=== PATIENT | female | born 1990 | race Caucasian/White ===

== ENCOUNTER 2017-10-15 19:18 | Emergency (ER) | payer OTHER, SELFPAY ==
[2017-10-15 19:22] VITALS: BP 136/86; PULSE 72; RESP 16; TEMP 37.2; O2SAT 99; BMI 25.0
--- NOTE | 2017-10-15 19:31 | US_ITS ---
US OB transvaginal Ordering Physician: Naseem Jernigan MD Patient Age: 27 years: Female HISTORY: ITS.REASON: VAGINAL BLEEDING WITH TECHNIQUE: Transvaginal pelvic ultrasound. Reported Early COMPARISON :None FINDINGS There is no evidence of intrauterine gestation at this time. Endometrial stripe measuring 5.7 mm AP contains mildly hypoechoic debris-filled fluid which could reflect blood. Minimal residual decidual reaction.. Beta-hCG 159 is very low and likely also reflects prior spontaneous AB. Follow-up serum beta hCG would additionally confirm such & confirm demise of this . Uterus normal size 7.1 cm length as 3.8 x 4.1 cm. No fluid in cul-de-sac. Left ovary: 3.4 cm X 2.9 x 1.9 cm and contains a thick walled, up to 2 cm cm cyst which may reflect a regressing residual of prior corpus luteum cyst. Scattered small follicles also noted the left ovary. Right ovary 3.4 x 2.1 cm IMPRESSION: 1. No intrauterine gestation evident. .This appearance along with very low low beta hCG most likely reflects prior spontaneous AB. . However follow beta-hCG to further exclude unlikely very very early . 2. Moderate thickness endometrial stripe possibly some residual blood or echogenic fluid within the endometrial cavity 3. No fluid in cul-de-sac. 4. Ovaries normal size bilaterally.. ... Left ovary contains a moderate thick-walled 2 cm cyst possible regressing prior corpus luteum
--- NOTE | 2017-10-15 19:43 | HMH.EDUROGF ---
ED Disposition Clinical Impression: First trimester bleeding Disposition: Home, Self-Care Condition on Discharge: Fair Additional Instructions: 1- to see Dr Diamond in 2 for a hormon level check and pathology report. Referrals: Nas Diamond MD [Staff Physician] - - Critical Care Critical Care Time: No Attestation: On , the high probability of a clinically significant, sudden or life threatening deterioration of the following system(s) required my full and direct attention, intervention and personal management. The time I documented below is in addition to time spent performing reported procedures but includes the following listed in this critical care notation. Medical Decision Making - Medical Records Medical records reviewed: Yes: I reviewed the patient's medical records. Vital Signs: 10/15/17 19:22 Temperature 98.9 F Temperature Source Oral Pulse Rate [Right Brachial] 72 Respiratory Rate 16 Blood Pressure [Right Arm] 136/86 Blood Pressure Mean [Right Arm] 102 Blood Pressure Source [Right Arm] Automatic Cuff Blood Pressure Position [Right Arm] Sitting 02 Sat by Pulse Oximetry 99 Oxygen Delivery Method Room Air - Lab Data Lab results reviewed: Yes: I reviewed the patient's lab results. Lab Results 10/15/17 19:45: WBC 9.6, RBC 4.65, Hgb 14.3, Hct 42.5, MCV 91.3, MCH 30.7, MCHC 33.6, RDW 12.0, Plt Count 287, MPV 7.0 L, Neut % (Auto) 56.0, Lymph % (Auto) 36.4, [place] % (Auto) 5.3, Eos % (Auto) 1.8, Baso % (Auto) 0.6, Neut # (Auto) 5.4, Lymph # (Auto) 3.5, [place] # (Auto) 0.5, Eos # (Auto) 0.2, Baso # (Auto) 0.1 10/15/17 19:45: Sodium 137, Potassium 3.3 L, Chloride 104, Carbon Dioxide 26, Anion Gap 10.3, BUN 7, Creatinine 0.58, Estimated Creat Clear 162, Estimated GFR 125, Est GFR ( Amer) 151, Glucose 86, Calcium 9.0, Total Bilirubin 0.2, AST 13 L, ALT 20, Alkaline Phosphatase 83, Total Protein 7.6, Albumin 4.1, Globulin 3.5 H, Albumin/Globulin Ratio 1.2 10/15/17 19:45: Serum HCG, Qual Positive 10/15/17 19:45: HCG, Quant 159 H Result diagrams: 10/15/17 19:45 10/15/17 19:45 Orders (Tests/Meds): ORDERS Category Date Time Status ABO/RH Type Stat BBK 10/15/17 19:52 Ordered US OB transvaginal Stat Ultrasound 10/15/17 19:31 Taken - US Data Findings Narrative: Transvaginal ultrasound was negative for sac. - Shawn Inquiry Pt receiving controlled substance: No Shawn was queried for this patient: No Medical Decision Making Narrative: I discussed with the patient her ultrasound results and her low hormone level. She understands she will need to follow-up with Dr. Diamond for a repeat hormone level and obtain a pathology report from the products that came out during the vaginal exam. Female Urogenital HPI - General Chief complaint: Vaginal Bleeding Stated complaint: Pregancy, Bleeding Mode of Arrival: Family Vehicle Limitations: No Limitations Description of Symptoms (Recalled from ER Triage Doc. by RN): C/O RECENTLY FOUND OUT SHE IS AND NOW HAVING MINIMAL BLEEDING - History of Present Illness HPI Narrative: 27 years old white female smoker 2 para 1 A0. Her menstrual period was September 12, 2017. She she missed her period this months and she tested herself and was positive for . Today after urination while wiping she saw blood, he came immediately to the ER. She denies abdominal pain, profuse vaginal bleeding, back pain. No nausea no vomiting no diarrhea no dysuria or hematuria. : yes - Related Data : 2 Para: 1 A: 0 Home Medications Medication Instructions Recorded Confirmed No Known Home Medications [No 10/15/17 10/15/17 Known Home Medications] Allergies Allergy/AdvReac Type Severity Reaction Status Date / Time No Known Allergies Allergy Verified 10/15/17 19:29 [facility] History I have reviewed the patient's past medical history: Yes Medical History: Denies:: Cancer, Diabetes Mellitus Type 1,
--- NOTE | 2017-10-15 19:47 | ED_ITS ---
ED Disposition Clinical Impression: First trimester bleeding Disposition: Home, Self-Care Condition on Discharge: Fair Additional Instructions: 1- to see Dr Diamond in 2 for a hormon level check and pathology report. Referrals: Nas Diamond MD [Staff Physician] - - Critical Care Critical Care Time: No Attestation: On , the high probability of a clinically significant, sudden or life threatening deterioration of the following system(s) required my full and direct attention, intervention and personal management. The time I documented below is in addition to time spent performing reported procedures but includes the following listed in this critical care notation. Medical Decision Making - Medical Records Medical records reviewed: Yes: I reviewed the patient's medical records. Vital Signs: 10/15/17 19:22 Temperature 98.9 F Temperature Source Oral Pulse Rate [Right Brachial] 72 Respiratory Rate 16 Blood Pressure [Right Arm] 136/86 Blood Pressure Mean [Right Arm] 102 Blood Pressure Source [Right Arm] Automatic Cuff Blood Pressure Position [Right Arm] Sitting 02 Sat by Pulse Oximetry 99 Oxygen Delivery Method Room Air - Lab Data Lab results reviewed: Yes: I reviewed the patient's lab results. Lab Results 10/15/17 19:45: WBC 9.6, RBC 4.65, Hgb 14.3, Hct 42.5, MCV 91.3, MCH 30.7, MCHC 33.6, RDW 12.0, Plt Count 287, MPV 7.0 L, Neut % (Auto) 56.0, Lymph % (Auto) 36.4, [place] % (Auto) 5.3, Eos % (Auto) 1.8, Baso % (Auto) 0.6, Neut # (Auto) 5.4 , Lymph # (Auto) 3.5, [place] # (Auto) 0.5, Eos # (Auto) 0.2, Baso # (Auto) 0.1 10/15/17 19:45: Sodium 137, Potassium 3.3 L, Chloride 104, Carbon Dioxide 26, Anion Gap 10.3, BUN 7, Creatinine 0.58, Estimated Creat Clear 162, Estimated GFR 125, Est GFR ( Amer) 151, Glucose 86, Calcium 9.0, Total Bilirubin 0.2, AST 13 L, ALT 20, Alkaline Phosphatase 83, Total Protein 7.6, Albumin 4.1, Globulin 3.5 H, Albumin/Globulin Ratio 1.2 10/15/17 19:45: Serum HCG, Qual Positive 10/15/17 19:45: HCG, Quant 159 H Result diagrams: 10/15/17 19:45 10/15/17 19:45 Orders (Tests/Meds): ORDERS Category Date Time Status ABO/RH Type Stat BBK 10/15/17 19:52 Ordered US OB transvaginal Stat Ultrasound 10/15/17 19:31 Taken - US Data Findings Narrative: Transvaginal ultrasound was negative for sac. - Shawn Inquiry Pt receiving controlled substance: No Shawn was queried for this patient: No Medical Decision Making Narrative: I discussed with the patient her ultrasound results and her low hormone level. She understands she will need to follow-up with Dr. Diamond for a repeat hormone level and obtain a pathology report from the products that came out during the vaginal exam. Female Urogenital HPI - General Chief complaint: Vaginal Bleeding Stated complaint: Pregancy, Bleeding Mode of Arrival: Family Vehicle Limitations: No Limitations Description of Symptoms (Recalled from ER Triage Doc. by RN): C/O RECENTLY FOUND OUT SHE IS AND NOW HAVING MINIMAL BLEEDING - History of Present Illness HPI Narrative: 27 years old white female smoker 2 para 1 A0. Her menstrual period was September 12, 2017. She she missed her period this months and she tested herself and was positive for . Today after urination while wiping she saw blood , he came immediately to the ER. She denies abdominal pain, profuse vaginal bleed
[2017-10-15 19:55] LABS: Basophils # 0.1 K/mm3 (0-0.2); Basophils % 0.6 % (0.1-2.0); Eosinophils # 0.2 K/mm3 (0.0-0.4); Eosinophils % 1.8 % (0.1-12.0); Hematocrit 42.5 % (37.0-47.0); Hemoglobin 14.3 g/dL (12.2-16.2); Lymphocytes # 3.5 K/mm3 (0.7-4.5); Lymphocytes % 36.4 K/mm3 (10-50); Mean Corpuscular HGB Conc 33.6 g/dL (31.8-35.4); Mean Corpuscular Hemoglobin 30.7 pg (27.0-31.2); Mean Corpuscular Volume 91.3 fl (81-99); Monocytes # 0.5 K/mm3 (0.1-1.0); Monocytes % 5.3 % (1.7-9.3); Neutrophils # 5.4 K/mm3 (1.8-7.8); Platelet Count 287 K/mm3 (142-424); Red Blood Count 4.65 M/mm3 (4.20-5.40); White Blood Count 9.6 K/mm3 (4.8-10.8)
[2017-10-15 20:01] LABS: HCG Qualitative, Serum Positive (Negative)
[2017-10-15 20:05] LABS: Alanine Aminotransferase 20 U/L (12-78); Albumin Level 4.1 gm/dL (3.4-5.0); Albumin/Globulin Ratio 1.2 (1.1-1.8); Alkaline Phosphatase 83 U/L (46-116); Anion Gap 10.3 mEq/L (5-15); Aspartate Amino Transferase 13 U/L (15-37); Bilirubin,Total 0.2 mg/dL (0.2-1.0); Blood Urea Nitrogen 7 mg/dL (7-18); Carbon Dioxide 26 mmol/L (21.0-32.0); Chloride 104 mmol/L (98-107); Creatinine Clearance Estimated 162 mL/min (0-300); Creatinine,Serum 0.58 mg/dL (0.55-1.02); Estimated Glomerular Filt Rate 125 ml/min (>60); GFR (African American) 151 ML/MIN (>60); Globulin 3.5 gm/dl (1.3-3.2); Glucose 86 mg/dL (74-106); Potassium 3.3 mmoL/L (3.5-5.1); Sodium 137 mmol/L (136-145); Total Protein,Serum 7.6 gm/dL (6.4-8.2)
[2017-10-15 21:14] LABS: HCG,Quantitative 159 mIU/mL
[2017-10-15 22:03] VITALS: BP 126/81; PULSE 88; RESP 12; TEMP 37; O2SAT 94
== END 2017-10-15 22:04 | disposition home or self-care (01) ==
PROVIDERS: Emergency Provider Emergency Medicine
DX: O20.9 Hemorrhage in early pregnancy, unspecified (principal); F17.210 Nicotine dependence, cigarettes, uncomplicated
CPT/HCPCS: 76830; 80053; 84702; 84703; 85025; 99283

== ENCOUNTER 2017-10-16 14:41 | Emergency (ER) | payer OTHER, SELFPAY ==
[2017-10-16 14:54] VITALS: BP 130/66; PULSE 86; RESP 18; TEMP 36.9; O2SAT 98; BMI 25.0
--- NOTE | 2017-10-16 15:00 | HMH.EDGENADL ---
ED Disposition Clinical Impression: Vaginal bleeding, Early stage of Disposition: Home, Self-Care Condition on Discharge: Fair Instructions: DI for Vaginal Bleeding Additional Instructions: followup for repeat test in 3 to 4 days. Abstain from sexual activity if bleeding Time of Disposition: 16:50 - Critical Care Critical Care Time: No Attestation: On , the high probability of a clinically significant, sudden or life threatening deterioration of the following system(s) required my full and direct attention, intervention and personal management. The time I documented below is in addition to time spent performing reported procedures but includes the following listed in this critical care notation. Medical Decision Making - Medical Records Medical records reviewed: Yes: I reviewed the patient's medical records. Vital Signs: 10/16/17 14:54 Temperature 98.4 F Temperature Source Oral Pulse Rate [Right Radial] 86 Respiratory Rate 18 Blood Pressure [Right Arm] 130/66 Blood Pressure Mean [Right Arm] 87 Blood Pressure Source [Right Arm] Automatic Cuff Blood Pressure Position [Right Arm] Sitting 02 Sat by Pulse Oximetry 98 Oxygen Delivery Method Room Air - Lab Data Lab results reviewed: Yes: I reviewed the patient's lab results. Lab Results 10/16/17 15:20: HCG, Quant 222 H 10/16/17 15:20: Blood Type O Positive - Shawn Inquiry Pt receiving controlled substance: No Shawn was queried for this patient: No General Adult HPI - General Chief complaint: Vaginal Bleeding Stated complaint: approx 4 weeks ,bleeding Time Seen by Provider: 10/16/17 15:00 Mode of Arrival: Family Vehicle Limitations: No Limitations Description of Symptoms (Recalled from ER Triage Doc. by RN): pt states she was seen in er lastnight for brown discharge, performed pelvic exam and a dark blood clot came out of her cervix. pt is now c/o bleeding/cramping/blood clots. pt was told she was possibly 4 weeks . - History of Present Illness HPI narrative: Pt states her LMP started . Started bleeding vaginally yesterdayand came to the ED where Beta [id number] and US of pelvis negative for IUP, now bleeding more and comes back to the ED . She does not know her Maternal Blood type or RH factor Location: pelvis - Related Data Home Medications Medication Instructions Recorded Confirmed No Known Home Medications [No 10/15/17 10/16/17 Known Home Medications] Allergies Allergy/AdvReac Type Severity Reaction Status Date / Time No Known Allergies Allergy Verified 10/15/17 19:29 [facility] History I have reviewed the patient's past medical history: Yes Medical History: Denies:: Cancer, Diabetes Mellitus Type 1, Diabetes Mellitus Type 2, MRSA Amputation: No Fractures: Yes (LEFT LEG) - Social History Smoking Status: Never smoker Tobacco Type: cigarettes Alcohol Intake: never - Psychiatric History Expresses thoughts of harming self/others: None Suicide Plan Description: No Plan ROS Obtained: Yes All systems reviewed & no additional complaints Physical Exam - General General appearance: alert, in no apparent distress - Head Head exam: atraumatic, normocephalic, normal inspection - Eye Eye exam: Present: normal appearance, PERRL, EOMI - Respiratory Respiratory exam: Present: normal lung sounds bilaterally. Absent: respiratory distress - Cardiovascular Cardiovascular exam: Present: regular rate, normal rhythm. Absent: JVD - Abdominal Exam Abdominal exam: Present: tenderness (in suprapubic area) - Neurological Exam Neurological exam: Present: alert, oriented X3
--- NOTE | 2017-10-16 15:07 | ED_ITS ---
ED Disposition Clinical Impression: Vaginal bleeding, Early stage of Disposition: Home, Self-Care Condition on Discharge: Fair Instructions: DI for Vaginal Bleeding Additional Instructions: followup for repeat test in 3 to 4 days. Abstain from sexual activity if bleeding Time of Disposition: 16:50 - Critical Care Critical Care Time: No Attestation: On , the high probability of a clinically significant, sudden or life threatening deterioration of the following system(s) required my full and direct attention, intervention and personal management. The time I documented below is in addition to time spent performing reported procedures but includes the following listed in this critical care notation. Medical Decision Making - Medical Records Medical records reviewed: Yes: I reviewed the patient's medical records. Vital Signs: 10/16/17 14:54 Temperature 98.4 F Temperature Source Oral Pulse Rate [Right Radial] 86 Respiratory Rate 18 Blood Pressure [Right Arm] 130/66 Blood Pressure Mean [Right Arm] 87 Blood Pressure Source [Right Arm] Automatic Cuff Blood Pressure Position [Right Arm] Sitting 02 Sat by Pulse Oximetry 98 Oxygen Delivery Method Room Air - Lab Data Lab results reviewed: Yes: I reviewed the patient's lab results. Lab Results 10/16/17 15:20: HCG, Quant 222 H 10/16/17 15:20: Blood Type O Positive - Shawn Inquiry Pt receiving controlled substance: No Shawn was queried for this patient: No General Adult HPI - General Chief complaint: Vaginal Bleeding Stated complaint: approx 4 weeks ,bleeding Time Seen by Provider: 10/16/17 15:00 Mode of Arrival: Family Vehicle Limitations: No Limitations Description of Symptoms (Recalled from ER Triage Doc. by RN): pt states she was seen in er lastnight for brown discharge, performed pelvic exam and a dark blood clot came out of her cervix. pt is now c/o bleeding/cramping/blood clots. pt was told she was possibly 4 weeks . - History of Present Illness HPI narrative: Pt states her LMP started . Started bleeding vaginally yesterdayand came to the ED where Beta [id number] and US of pelvis negative for IUP, now bleeding more and comes back to the ED . She does not know her Maternal Blood type or RH factor Location: pelvis - Related Data Home Medications Medication Instructions Recorded Confirmed No Known Home Medications [No 10/15/17 10/16/17 Known Home Medications] Allergies Allergy/AdvReac Type Severity Reaction Status Date / Time No Known Allergies Allergy Verified 10/15/17 19:29 [facility] History I have reviewed the patient's past medical history: Yes Medical History: Denies:: Cancer, Diabetes Mellitus Type 1, Diabetes Mellitus Type 2, MRSA Amputation: No Fractures: Yes (LEFT LEG) - Social History Smoking Status: Never smoker Tobacco Type: cigarettes Alcohol Intake: never - Psychiatric History Expresses thoughts of harming self/others: None Suicide Plan Description: No Plan ROS Obtained: Yes All systems reviewed & no additional complaints Physical Exam - General General appearance: alert, in no apparent distress - Head Head exam: atraumatic, normocephalic, normal inspection - Eye Eye exam: Present: normal appearance, PERRL, EOMI - Respir
[2017-10-16 15:50] LABS: HCG,Quantitative 222 mIU/mL
[2017-10-16 17:13] VITALS: BP 152/81; PULSE 74; RESP 20; TEMP 37.3
== END 2017-10-16 17:21 | disposition home or self-care (01) ==
PROVIDERS: Emergency Provider General Practice
DX: O20.9 Hemorrhage in early pregnancy, unspecified (principal)
CPT/HCPCS: 84702; 86900; 86901; 99282

== ENCOUNTER → 2017-10-18 09:07 | Outpatient (CLI) | payer OTHER, SELFPAY ==
[2017-10-18 10:24] LABS: HCG,Quantitative 210 mIU/mL
== END ==
PROVIDERS: Visit Provider Obstetrics & Gynecology
DX: Z32.00 Encounter for pregnancy test, result unknown (principal)
CPT/HCPCS: 36415; 84702

== ENCOUNTER → 2017-10-20 09:29 | Day surgery (SDC) | payer OTHER, SELFPAY ==
[2017-10-20] VITALS (14 sets, daily range): BP systolic 93–117; BP diastolic 53–68; PULSE 48–74; RESP 12–18; TEMP 36.6–37.2; O2SAT 91–100; BMI 25.0
--- NOTE | 2017-10-20 10:11 | HMH.ANESCL ---
[facility] Anesthesia Checklist - Patient Identification Patient Identification: Arm Band - Structural Data Admitted From: Home Planned Operative Procedure/s: d&e Consent for Planned Operative Procedure(s) Verified: Yes Verified Documents: Surgical Consent, History and Physical - NPO Status Verified Time NPO: 00:00 - Additional verifications Anesthesia Reactions: No - Airway Assessment C-Spine Mobility Assessed: Yes (mp2) TMJ Mobility Assessed: Yes Dentition: Good Dentition - Neurological Assessment Level of Consciousness: Awake, Alert - Anesthesia Plan Anesthesia Risk discussed: Yes Anesthesia Plan: Verified ASA Class: II Anesthesia Type: General [facility] Anesthesia HX I have reviewed the patient's past medical history: Yes Medical History: Denies:: Cancer, Diabetes Mellitus Type 1, Diabetes Mellitus Type 2, MRSA, Seizures Other Medical History: Reports: Other (smoker) Laterality Cases: Left: Other Other Surgeries: Yes: Other (LSC cholecystectomy) Amputation: No Fractures: Yes (LEFT LEG) *Family Hx:: Diabetes, Hypertension
--- NOTE | 2017-10-20 10:44 | HMH.OPNOTE ---
Date of procedure: 10/20/17 Pre-op Diagnosis:: Incomplete spontaneous Post-op diagnosis:: same Procedure performed:: Dilatation and suction curettage Surgeon:: Nas Diamond MD COMMERCIAL ROOFING ESTIMATOR:: Jose Luis Donohue Anesthesia: YEVGENIY Estimated blood loss (mL): 20 Operative findings:: Minimal products of conception. No adnexal masses. Operative note:: After the patient was prepped and draped in the usual fashion and general anesthesia was administered, examination under anesthesia revealed a normal-sized anteverted uterus, with no adnexal masses. Moderate bleeding was occurring from the cervical os. There were no palpable adnexal masses. A weighted speculum was placed within the posterior fourchette of the vagina, and the anterior lip of the cervix was grasped with a single-tooth tenaculum. The uterus was sounded in an anteverted direction to 8 cm, and easily admitted a #14 Hegar dilator. A sharp curette was introduced into the endometrial cavity, with the retrieval of minimal tissue. This was followed by suction with a #7 curved suction tip, and again by sharp curettage and suction, until it was felt that the cavity was clean. The instruments were then removed. Bimanual examination again confirmed no palpable adnexal masses. It was felt that the majority of products of conception had passed spontaneously. The sponge and needle counts correct. Estimated blood loss was 20 cc. The patient tolerated the procedure well, was taken to PACU in excellent condition. Her blood type is Rh+, and therefore she is not a candidate for RhoGam. She will be discharged today, if her vital signs are stable. Condition: stable Disposition: same day Specimens:: Parts of conception Complications:: None
--- NOTE | 2017-10-20 10:47 | P.OP_ITS ---
Date of procedure: 10/20/17 Pre-op Diagnosis:: Incomplete spontaneous Post-op diagnosis:: same Procedure performed:: Dilatation and suction curettage Surgeon:: Nas Diamond MD INFORMATION TECHNOLOGY CONSULTANT:: Jose Luis Donohue Anesthesia: YEVGENIY Estimated blood loss (mL): 20 Operative findings:: Minimal products of conception. No adnexal masses. Operative note:: After the patient was prepped and draped in the usual fashion and general anesthesia was administered, examination under anesthesia revealed a normal- sized anteverted uterus, with no adnexal masses. Moderate bleeding was occurring from the cervical os. There were no palpable adnexal masses. A weighted speculum was placed within the posterior fourchette of the vagina, and the anterior lip of the cervix was grasped with a single-tooth tenaculum. The uterus was sounded in an anteverted direction to 8 cm, and easily admitted a # 14 Hegar dilator. A sharp curette was introduced into the endometrial cavity, with the retrieval of minimal tissue. This was followed by suction with a #7 curved suction tip, and again by sharp curettage and suction, until it was felt that the cavity was clean. The instruments were then removed. Bimanual examination again confirmed no palpable adnexal masses. It was felt that the majority of products of conception had passed spontaneously. The sponge and needle counts correct. Estimated blood loss was 20 cc. The patient tolerated the procedure well, was taken to PACU in excellent condition. Her blood type is Rh+, and therefore she is not a candidate for RhoGam. She will be discharged today, if her vital signs are stable. Condition: stable Disposition: same day Specimens:: Parts of conception Complications:: None
--- NOTE | 2017-10-20 10:50 | HMH.ANESI ---
[facility] Anesthesia Record Part I Intake, IV Amount: 500 Estimated blood loss (mL): 100 Urine output (mL): 25 Blood Pressure: 117/57 SaO2: 91 Pulse Rate: 50 Respiratory Rate: 12 Temperature: 97.8 F Patient is:: Awake, Drowsy, Stable Stable to PACU at:: 10:50
--- NOTE | 2017-10-20 10:51 | P.PN_ITS ---
[facility] Anesthesia Record Part II Discharge Time: 11:20 Destination: [facility] PACU nurse assessment reviewed?: Yes Patient Condition:: Good Anesthesia Complications:: None
--- NOTE | 2017-10-20 10:51 | HMH.ANESII ---
[facility] Anesthesia Record Part II Discharge Time: 11:20 Destination: [facility] PACU nurse assessment reviewed?: Yes Patient Condition:: Good Anesthesia Complications:: None
[2017-10-20 12:14] LABS: Hematocrit 41.4 % (37.0-47.0); Hemoglobin 13.5 g/dL (12.2-16.2)
--- NOTE | 2017-10-20 15:15 | SUR.PHASEII ---
pt to post op with reddened veins to left arm ( iv site). Pt had demerol in pacu. Lactated ringer's @KVO. called @ 1148. VO given for 12.5mg benadryl ivp now for itching. 1157- 12.5MG Benadryl given ivp. 1204-lab @ bs to get post h/h 1205- clinic pharmacy @ [facility]. Prescription given to pt. 1214- arm/iv site less red.
== END ==
PROVIDERS: Visit Provider Obstetrics & Gynecology
PROC: (CPT 59812; principal; 2017-10-20 12:10)
DX: O03.4 Incomplete spontaneous abortion without complication (principal)
CPT/HCPCS: 59812; 36415; 85014; 85018; J2405

== ENCOUNTER 2017-10-21 00:04 | Emergency (ER) | payer OTHER, SELFPAY ==
[2017-10-21 00:05] VITALS: BP 134/76; PULSE 80; RESP 14; TEMP 36.9; O2SAT 98; BMI 25.0
[2017-10-21 00:29] LABS: Microscopic, Urine URINE MICROSCOPIC (MICROSCOPIC)
[2017-10-21 00:36] LABS: Appearance,Urine CLEAR (Clear); Bilirubin,Urine Negative (Negative); Blood, Urine 2+ (Negative); Color,Urine YELLOW (Yellow); Glucose,Urine (UA) Negative (Negative); Ketones,Urine Negative (Negative); Leukocyte Esterase,Urine TRACE (Negative); Nitrate,Urine Negative (Negative); Protein,Urine Negative (Negative); Specific Gravity, Urine <= 1.005 (1.005-1.030); Urobilinogen,Urine 0.2 EU/dl (0.2)
[2017-10-21 00:40] LABS: Eosinophils % 0.1 % (0.1-12.0); Hematocrit 43.2 % (37.0-47.0); Hemoglobin 14.6 g/dL (12.2-16.2); Lymphocytes # 1.1 K/mm3 (0.7-4.5); Lymphocytes % 9.8 K/mm3 (10-50); Mean Corpuscular HGB Conc 33.8 g/dL (31.8-35.4); Mean Corpuscular Hemoglobin 30.4 pg (27.0-31.2); Mean Corpuscular Volume 89.9 fl (81-99); Mean Platelet Volume 7.2 fl (7.4-10.4); Monocytes # 0.3 K/mm3 (0.1-1.0); Monocytes % 2.3 % (1.7-9.3); Neutrophils % 87.7 % (37.0-80.0); Platelet Count 305 K/mm3 (142-424); Red Blood Count 4.81 M/mm3 (4.20-5.40); Red Cell Distribution Width 11.9 % (11.5-17.5); White Blood Count 11.4 K/mm3 (4.8-10.8)
[2017-10-21 00:41] LABS: MANUAL DIFFERENTIAL MANUAL DIFFERENTIAL (MANUAL DIFF)
[2017-10-21 00:55] LABS: Alanine Aminotransferase 19 U/L (12-78); Albumin/Globulin Ratio 1.1 (1.1-1.8); Alkaline Phosphatase 87 U/L (46-116); Aspartate Amino Transferase 10 U/L (15-37); Bilirubin,Total 0.2 mg/dL (0.2-1.0); Blood Urea Nitrogen 4 mg/dL (7-18); Calcium 8.8 mg/dL (8.5-10.1); Carbon Dioxide 22 mmol/L (21.0-32.0); Chloride 101 mmol/L (98-107); Creatinine Clearance Estimated 151 mL/min (0-300); Creatinine,Serum 0.62 mg/dL (0.55-1.02); Estimated Glomerular Filt Rate 115 ml/min (>60); GFR (African American) 140 ML/MIN (>60); Globulin 3.8 gm/dl (1.3-3.2); Glucose 135 mg/dL (74-106); Total Protein,Serum 7.8 gm/dL (6.4-8.2)
[2017-10-21 01:00] LABS: Anion Gap 11.9 mEq/L (5-15); Potassium 3.9 mmoL/L (3.5-5.1); Sodium 131 mmol/L (136-145)
[2017-10-21 01:01] LABS: Lymphocytes % 9 % (10-50); Monocytes % 1 % (2-9); Neutrophils % 81 % (42-76); Total Cells Counted 100
[2017-10-21 01:02] LABS: Platelet Estimate Normal; RBC Morphology Normal
--- NOTE | 2017-10-21 01:03 | [facility].EDWEAK ---
ED Disposition Clinical Impression: Tingling in extremities Disposition: Home, Self-Care Condition on Discharge: Good Instructions: DI for Numbness/tingling - Critical Care Critical Care Time: No Attestation: On 10/21/17, the high probability of a clinically significant, sudden or life threatening deterioration of the following system(s) required my full and direct attention, intervention and personal management. The time I documented below is in addition to time spent performing reported procedures but includes the following listed in this critical care notation. Medical Decision Making - Medical Records Medical records reviewed: Yes: I reviewed the patient's medical records. Vital Signs: 10/21/17 00:05 Temperature 98.5 F Temperature Source Oral Pulse Rate [Right Brachial] 80 Respiratory Rate 14 Blood Pressure [Right Arm] 134/76 Blood Pressure Mean [Right Arm] 95 Blood Pressure Source [Right Arm] Automatic Cuff Blood Pressure Position [Right Arm] Sitting 02 Sat by Pulse Oximetry 98 Oxygen Delivery Method Room Air - Lab Data Lab Results 10/21/17 00:18: Urine Color Yellow, Urine Appearance Clear, Urine pH 7.0, Ur Specific [place] <= 1.005, Urine Protein Negative, Urine Glucose (UA) Negative, Urine Ketones Negative, Urine Blood 2+, Urine Nitrate Negative, Urine Bilirubin Negative, Urine Urobilinogen 0.2, Ur Leukocyte Esterase Trace, Urine RBC 5-10, Urine WBC 3-5, Ur Squamous Epith Cells 3-5 10/21/17 00:31: WBC 11.4 H, RBC 4.81, Hgb 14.6, Hct 43.2, MCV 89.9, MCH 30.4, MCHC 33.8, RDW 11.9, Plt Count 305, MPV 7.2 L, Neut % (Auto) 87.7 H, Lymph % (Auto) 9.8 L, [place] % (Auto) 2.3, Eos % (Auto) 0.1, Baso % (Auto) 0.0 L, Neut # (Auto) 10.0 H, Lymph # (Auto) 1.1, [place] # (Auto) 0.3, Eos # (Auto) 0.0, Baso # (Auto) 0.0, Total Counted 100, Neutrophils % (Manual) 81 H, Band Neutrophils % 9.0 H, Lymphocytes % (Manual) 9 L, Monocytes % (Manual) 1 L, Platelet Estimate Normal, RBC Morphology Normal 10/21/17 00:31: Sodium 131 L, Potassium 3.9, Chloride 101, Carbon Dioxide 22, Anion Gap 11.9, BUN 4 L, Creatinine 0.62, Estimated Creat Clear 151, Estimated GFR 115, Est GFR ( Amer) 140, Glucose 135 H, Calcium 8.8, Total Bilirubin 0.2, AST 10 L, ALT 19, Alkaline Phosphatase 87, Total Protein 7.8, Albumin 4.0, Globulin 3.8 H, Albumin/Globulin Ratio 1.1 Result diagrams: 10/21/17 00:31 10/21/17 00:31 - Shawn Inquiry Pt receiving controlled substance: No Weakness HPI - General Chief complaint: Weakness Stated complaint: had D&C 10/20/17 now with numbness,frequent urinati Time Seen by Provider: 10/21/17 01:03 Mode of Arrival: Ambulatory Source of Information: Patient, Medical Record Limitations: No Limitations Description of Symptoms (Recalled from ER Triage Doc. by RN): burning with urination along with frequency, pt states elbows and knees are going numb - History of Present Illness HPI Narrative: had d/c earlier today and now with tingling in upper and lower ext - no facial or visual and no speech sx MD Complaint: tingling Onset (ago): hour(s) Duration: intermittent Location: LUE, LLE, RLE Migration: none Severity: moderate Quality: tingling - Related Data Home Medications Medication Instructions Recorded Confirmed No Known Home Medications [No 10/20/17 10/21/17 Known Home Medications] Allergies Allergy/AdvReac Type Severity Reaction Status Date / Time meperidine [From Demerol] Allergy Verified 10/21/17 00:15 [facility] History I have reviewed the patient's past medical history: Yes Medical History: Denies:: Cancer, Diabetes Mellitus Type 1, Diabetes Mellitus Type 2, MRSA, Seizures Other Medical History: Reports: Other (smoker) Laterality Cases: Left: Other Other Surgeries: Yes: Other (LSC cholecystectomy) Amputation: No Fractures: Yes (LEFT LEG) - Social History Educational Level: Completed High School Smoking Status: Current every day smoker Tobacco Type: cigarettes # Pack
--- NOTE | 2017-10-21 01:06 | ED_ITS ---
ED Disposition Clinical Impression: Tingling in extremities Disposition: Home, Self-Care Condition on Discharge: Good Instructions: DI for Numbness/tingling - Critical Care Critical Care Time: No Attestation: On 10/21/17, the high probability of a clinically significant, sudden or life threatening deterioration of the following system(s) required my full and direct attention, intervention and personal management. The time I documented below is in addition to time spent performing reported procedures but includes the following listed in this critical care notation. Medical Decision Making - Medical Records Medical records reviewed: Yes: I reviewed the patient's medical records. Vital Signs: 10/21/17 00:05 Temperature 98.5 F Temperature Source Oral Pulse Rate [Right Brachial] 80 Respiratory Rate 14 Blood Pressure [Right Arm] 134/76 Blood Pressure Mean [Right Arm] 95 Blood Pressure Source [Right Arm] Automatic Cuff Blood Pressure Position [Right Arm] Sitting 02 Sat by Pulse Oximetry 98 Oxygen Delivery Method Room Air - Lab Data Lab Results 10/21/17 00:18: Urine Color Yellow, Urine Appearance Clear, Urine pH 7.0, Ur Specific [place] <= 1.005, Urine Protein Negative, Urine Glucose (UA) Negative, Urine Ketones Negative, Urine Blood 2+, Urine Nitrate Negative, Urine Bilirubin Negative, Urine Urobilinogen 0.2, Ur Leukocyte Esterase Trace, Urine RBC 5-10, Urine WBC 3-5, Ur Squamous Epith Cells 3-5 10/21/17 00:31: WBC 11.4 H, RBC 4.81, Hgb 14.6, Hct 43.2, MCV 89.9, MCH 30.4, MCHC 33.8, RDW 11.9, Plt Count 305, MPV 7.2 L, Neut % (Auto) 87.7 H, Lymph % ( Auto) 9.8 L, [place] % (Auto) 2.3, Eos % (Auto) 0.1, Baso % (Auto) 0.0 L, Neut # ( Auto) 10.0 H, Lymph # (Auto) 1.1, [place] # (Auto) 0.3, Eos # (Auto) 0.0, Baso # ( Auto) 0.0, Total Counted 100, Neutrophils % (Manual) 81 H, Band Neutrophils % 9.0 H, Lymphocytes % (Manual) 9 L, Monocytes % (Manual) 1 L, Platelet Estimate Normal, RBC Morphology Normal 10/21/17 00:31: Sodium 131 L, Potassium 3.9, Chloride 101, Carbon Dioxide 22, Anion Gap 11.9, BUN 4 L, Creatinine 0.62, Estimated Creat Clear 151, Estimated GFR 115, Est GFR ( Amer) 140, Glucose 135 H, Calcium 8.8, Total Bilirubin 0.2, AST 10 L, ALT 19, Alkaline Phosphatase 87, Total Protein 7.8, Albumin 4.0, Globulin 3.8 H, Albumin/Globulin Ratio 1.1 Result diagrams: 10/21/17 00:31 10/21/17 00:31 - Shawn Inquiry Pt receiving controlled substance: No Weakness HPI - General Chief complaint: Weakness Stated complaint: had D&C 10/20/17 now with numbness,frequent urinati Time Seen by Provider: 10/21/17 01:03 Mode of Arrival: Ambulatory Source of Information: Patient, Medical Record Limitations: No Limitations Description of Symptoms (Recalled from ER Triage Doc. by RN): burning with urination along with frequency, pt states elbows and knees are going numb - History of Present Illness HPI Narrative: had d/c earlier today and now with tingling in upper and lower ext - no facial or visual and no speech sx Complaint: tingling Onset (ago): hour(s) Duration: intermittent Location: LUE, LLE, RLE Migration: none Severity: moderate Quality: tingling - Related Data Home Medications Medication Instructions Recorded Confirmed No Known Home Medications [No 10/20/17 10/21/17 Known Home Medications] Allergies Allergy/AdvReac Type Severity Reaction Status
[2017-10-21 01:24] VITALS: BP 110/57; PULSE 89; RESP 14; O2SAT 97
[2017-10-21 01:38] VITALS: BP 105/54; PULSE 69; RESP 12; TEMP 36.9; O2SAT 99
== END 2017-10-21 01:41 | disposition home or self-care (01) ==
PROVIDERS: Emergency Provider Emergency Medicine
DX: R20.2 Paresthesia of skin (principal); R35.0 Frequency of micturition; F17.210 Nicotine dependence, cigarettes, uncomplicated; Z90.49 Acquired absence of other specified parts of digestive tract
CPT/HCPCS: 80053; 81001; 85007; 85025; 96365; 99282

== ENCOUNTER → 2017-10-26 09:48 | Outpatient (CLI) | payer OTHER, SELFPAY ==
[2017-10-26 11:31] LABS: HCG,Quantitative 2 mIU/mL
== END ==
PROVIDERS: Visit Provider Obstetrics & Gynecology
DX: O03.4 Incomplete spontaneous abortion without complication (principal)
CPT/HCPCS: 36415; 84702

== ENCOUNTER → 2017-12-11 16:01 | Outpatient (CLI) | payer OTHER, SELFPAY ==
[2017-12-11 16:38] LABS: Basophils # 0.1 K/mm3 (0-0.2); Basophils % 0.5 % (0.1-2.0); Eosinophils # 0.1 K/mm3 (0.0-0.4); Eosinophils % 1.4 % (0.1-12.0); Hematocrit 44.8 % (37.0-47.0); Hemoglobin 14.6 g/dL (12.2-16.2); Lymphocytes # 3.2 K/mm3 (0.7-4.5); Lymphocytes % 32.7 K/mm3 (10-50); Mean Corpuscular HGB Conc 32.6 g/dL (31.8-35.4); Mean Corpuscular Hemoglobin 30.2 pg (27.0-31.2); Mean Corpuscular Volume 92.8 fl (81-99); Mean Platelet Volume 7.2 fl (7.4-10.4); Monocytes # 0.5 K/mm3 (0.1-1.0); Monocytes % 4.6 % (1.7-9.3); Neutrophils # 5.9 K/mm3 (1.8-7.8); Neutrophils % 60.7 % (37.0-80.0); Platelet Count 333 K/mm3 (142-424); Red Blood Count 4.83 M/mm3 (4.20-5.40); Red Cell Distribution Width 12.1 % (11.5-17.5); White Blood Count 9.7 K/mm3 (4.8-10.8)
[2017-12-11 18:43] LABS: Thyroid Stimulating Hormone 0.71 uIU/ml (0.358-3.740)
[2017-12-11 18:57] LABS: Amphetamine/Metha Screen,Urine Negative ng/mL (<1000); Barbiturates Screen,Urine Negative ng/mL (<200); Benzodiazepines Screen,Urine Negative ng/mL (200); Cannabinoid Screen,Urine Negative ng/mL (<50); Cocaine Screen,Urine Negative ng/g (<300); Methadone Screen,Urine Negative ng/mL (<300); Opiate Screen,Urine Negative ng/mL (<300); Phencyclidine Screen,Urine Negative ng/mL (<25)
[2017-12-13 16:16] LABS: HIV Screen 4th Generation wRfx Non Reactive (Non Reactive); Hepatitis B Surface Antigen Negative (Negative); Rubella Antibodies, IgG 2.15 index (Immune >0.99)
== END ==
PROVIDERS: Visit Provider Obstetrics & Gynecology
DX: Z34.90 Encounter for supervision of normal pregnancy, unspecified, unspecified trimester (principal)
CPT/HCPCS: 36415; 80305; 84443; 84702; 85025; 86703; 86762; 86850; 87340; G0432

== ENCOUNTER → 2017-12-14 16:33 | Outpatient (CLI) | payer OTHER, SELFPAY | PROVIDERS: Visit Provider Obstetrics & Gynecology | DX: Z34.90 Encounter for supervision of normal pregnancy, unspecified, unspecified trimester (principal) | CPT/HCPCS: 36415; 84702 ==

== ENCOUNTER → 2018-03-05 11:35 | Outpatient (CLI) | payer OTHER, SELFPAY ==
[2018-03-08 03:38] LABS: AFP Value 82.4 ng/mL (.); DIA MoM 2.37 (.); DIA Value 429.52 pg/mL (.); DSR (Second Trimester) 1 IN 5861 (.); Gest. Age on Collection Date 19.6 WEEKS (.); Insulin Dep Diabetes No (.); Maternal Age At EDD 28.2 yr (.); OSBR Risk 1 IN 2100 (.); Results Report (.); hCG MoM 0.49 (.); hCG Value 11353 mIU/mL (.); uE3 MoM 0.97 (.); uE3 Value 1.61 ng/mL (.)
[2018-03-08 06:05] LABS: Gestat. Age Based On EDD (.)
== END ==
PROVIDERS: Family Provider Emergency Medicine; PCP Emergency Medicine; Visit Provider Obstetrics & Gynecology
DX: Z34.90 Encounter for supervision of normal pregnancy, unspecified, unspecified trimester (principal)
CPT/HCPCS: 36415; 82106

== ENCOUNTER → 2018-04-18 13:51 | Outpatient (CLI) | payer OTHER, SELFPAY ==
[2018-04-18 14:15] LABS: Glucose,Fasting 78 mg/dL (60-105)
[2018-04-18 15:33] LABS: Glucose 1 Hour 145 mg/dL (74-106)
== END ==
PROVIDERS: Family Provider Emergency Medicine; PCP Emergency Medicine; Visit Provider Obstetrics & Gynecology
DX: Z34.90 Encounter for supervision of normal pregnancy, unspecified, unspecified trimester (principal)
CPT/HCPCS: 36415; 82951

== ENCOUNTER → 2018-04-30 09:06 | Outpatient (CLI) | payer OTHER, SELFPAY ==
[2018-04-30 11:31] LABS: Glucose 1 Hour 166 mg/dL (74-106)
[2018-04-30 11:42] LABS: Glucose 2 Hour 129 mg/dL (74-106)
[2018-04-30 13:00] LABS: Glucose 3 Hour 135 mg/dL (74-106)
== END ==
PROVIDERS: Visit Provider Obstetrics & Gynecology
DX: Z34.90 Encounter for supervision of normal pregnancy, unspecified, unspecified trimester (principal)
CPT/HCPCS: 36415; 82951

== ENCOUNTER 2018-05-13 20:14 | Outpatient (CLI) | payer OTHER, SELFPAY ==
[2018-05-13 20:25] VITALS: BMI 26.3
[2018-05-13 20:36] LABS: Microscopic, Urine URINE MICROSCOPIC (MICROSCOPIC)
[2018-05-13 20:45] VITALS: BP 120/68; PULSE 94; RESP 18; TEMP 37.2; O2SAT 97; BMI 26.3
[2018-05-13 20:53] LABS: Appearance,Urine CLOUDY (Clear); Bilirubin,Urine Negative (Negative); Blood, Urine Negative (Negative); Color,Urine YELLOW (Yellow); Glucose,Urine (UA) Negative (Negative); Ketones,Urine Negative (Negative); Leukocyte Esterase,Urine Negative (Negative); Nitrate,Urine Negative (Negative); Protein,Urine Negative (Negative); Urobilinogen,Urine 0.2 EU/dl (0.2)
[2018-05-13 21:04] LABS: Amorphous Sediment,Urine 4+ /lpf
== END 2018-05-13 22:55 | disposition home or self-care (01) ==
LOC: OBOUT 20:18 → OB 20:18
PROVIDERS: PCP Obstetrics & Gynecology; Visit Provider Nurse Practitioner Obstetrics & Gynecology
DX: O26.893 Other specified pregnancy related conditions, third trimester (principal); Z3A.29 29 weeks gestation of pregnancy; R11.0 Nausea; R10.30 Lower abdominal pain, unspecified
CPT/HCPCS: 59025; 81001; 96360; 96367

== ENCOUNTER → 2018-05-17 09:23 | Outpatient (CLI) | payer OTHER, SELFPAY ==
[2018-05-17 10:08] LABS: Glucose,Random 80 mg/dL (70-110)
== END ==
PROVIDERS: Family Provider Emergency Medicine; PCP Obstetrics & Gynecology; Visit Provider Obstetrics & Gynecology
DX: Z34.90 Encounter for supervision of normal pregnancy, unspecified, unspecified trimester (principal)
CPT/HCPCS: 36415; 82947

== ENCOUNTER → 2018-05-31 10:53 | Outpatient (CLI) | payer OTHER, MEDICAID, SELFPAY ==
[2018-05-31 12:06] LABS: Glucose,Random 80 mg/dL (70-110)
== END ==
PROVIDERS: Family Provider Emergency Medicine; PCP Obstetrics & Gynecology; Visit Provider Obstetrics & Gynecology
DX: Z13.1 Encounter for screening for diabetes mellitus (principal)
CPT/HCPCS: 36415; 82947

== ENCOUNTER → 2018-06-14 13:02 | Outpatient (CLI) | payer OTHER, MEDICAID, SELFPAY ==
[2018-06-14 14:24] LABS: Glucose,Random 75 mg/dL (70-110)
== END ==
PROVIDERS: Visit Provider Obstetrics & Gynecology
DX: Z13.1 Encounter for screening for diabetes mellitus (principal); Z34.90 Encounter for supervision of normal pregnancy, unspecified, unspecified trimester
CPT/HCPCS: 36415; 82947; 86403

== ENCOUNTER 2018-07-23 04:56 | Inpatient (IN) ==
[2018-07-23 06:04] LABS: Basophils # 0.1 K/mm3 (0-0.2); Basophils % 0.5 % (0.1-2.0); Eosinophils # 0.1 K/mm3 (0.0-0.4); Hematocrit 33.3 % (37.0-47.0); Hemoglobin 11.7 g/dL (12.2-16.2); Lymphocytes # 2.4 K/mm3 (0.7-4.5); Lymphocytes % 24.2 % (10-50); Mean Corpuscular HGB Conc 35.2 g/dL (31.8-35.4); Mean Corpuscular Volume 91.1 fl (81-99); Mean Platelet Volume 7.3 fl (7.4-10.4); Monocytes # 0.5 K/mm3 (0.1-1.0); Monocytes % 4.5 % (1.7-9.3); Neutrophils # 6.7 K/mm3 (1.8-7.8); Platelet Count 241 K/mm3 (142-424); Red Blood Count 3.65 M/mm3 (4.20-5.40); Red Cell Distribution Width 13.4 % (11.5-17.5); White Blood Count 10.1 K/mm3 (4.8-10.8)
--- NOTE | 2018-07-23 06:25 | Progress Note ---
Internal Medicine - PN: Subj *Date: 07/23/18 *Time: 06:19 Interval history: This 28 y/o [id number] WF is admitted at 39 4/7 weeks with irregular contractions..She was diagnosed with mild gestational diabetes (diet-controlled)--hER ACCUCEK this AM is 86--her cervix is 75% effaced, 1cm dilated, with the presenting vertex high..She will be augmented with intravenous pitocin, in anticipation of a vaginal delivery. Exam Vital signs and Labs for Last 24 Hours: Laboratory Results - last 24 hr 07/23/18 05:30: WBC 10.1, RBC 3.65 L, Hgb 11.7 L, Hct 33.3 L, MCV 91.1, MCH 32.0 H, MCHC 35.2, RDW 13.4, Plt Count 241, MPV 7.3 L, Neut % (Auto) 66.0, Lymph % (Auto) 24.2, [place] % (Auto) 4.5, Eos % (Auto) 1.0, Baso % (Auto) 0.5, Neut # (Auto) 6.7, Lymph # (Auto) 2.4, [place] # (Auto) 0.5, Eos # (Auto) 0.1, Baso # (Auto) 0.1 I & O for Last 24 hours: Intake & Output 07/20/18 07/21/18 07/22/18 07/23/18 11:59 11:59 11:59 11:59 Weight 171 lb 8 oz
[2018-07-23 07:29] LABS: Microscopic, Urine URINE MICROSCOPIC (MICROSCOPIC)
[2018-07-23 07:51] LABS: Appearance,Urine CLEAR (Clear); Bilirubin,Urine Negative (Negative); Blood, Urine Negative (Negative); Color,Urine YELLOW (Yellow); Glucose,Urine (UA) Negative (Negative); Ketones,Urine Negative (Negative); Leukocyte Esterase,Urine Negative (Negative); Protein,Urine Negative (Negative); Urobilinogen,Urine 0.2 EU/dl (0.2)
--- NOTE | 2018-07-23 07:58 | Progress Note ---
Internal Medicine - PN: Subj *Date: 07/23/18 *Time: 07:57 Interval history: Cervix is now 90%, 1 cm, with a presenting vertex at -3 station in posterior. Intravenous Pitocin has been begun. The patient may have an epidural at her request. Exam Vital signs and Labs for Last 24 Hours: Temp Pulse Resp BP Pulse Ox 98.3 F 73 18 126/73 99 07/23/18 06:39 07/23/18 06:39 07/23/18 06:39 07/23/18 06:39 07/23/18 06:39 Laboratory Results - last 24 hr 07/23/18 05:30: WBC 10.1, RBC 3.65 L, Hgb 11.7 L, Hct 33.3 L, MCV 91.1, MCH 32.0 H, MCHC 35.2, RDW 13.4, Plt Count 241, MPV 7.3 L, Neut % (Auto) 66.0, Lymph % (Auto) 24.2, [place] % (Auto) 4.5, Eos % (Auto) 1.0, Baso % (Auto) 0.5, Neut # (Auto) 6.7, Lymph # (Auto) 2.4, [place] # (Auto) 0.5, Eos # (Auto) 0.1, Baso # (Auto) 0.1 07/23/18 05:30: Blood Type O Positive, Antibody Screen Negative I & O for Last 24 hours: Intake & Output 07/20/18 07/21/18 07/22/18 07/23/18 11:59 11:59 11:59 11:59 Weight 171 lb 8 oz
[2018-07-23 08:35] LABS: Bacteria,Urine 4+ /lpf; Mucus,Urine 1+ /lpf
--- NOTE | 2018-07-23 11:27 | Progress Note ---
Internal Medicine - PN: Subj *Date: 07/23/18 *Time: :26 Interval history: Epidural is now in situ and working well. Cervix is 80%, 2-3 cm, with the presenting vertex at -2 station. An amniotomy revealed clear fluid, and an internal monitor has been placed. The patient continues on IV Pitocin. Exam Vital signs and Labs for Last 24 Hours: Temp Pulse Resp BP Pulse Ox 98.3 F 73 18 126/73 99 07/23/18 06:39 07/23/18 06:39 07/23/18 06:39 07/23/18 06:39 07/23/18 06:39 Laboratory Results - last 24 hr 07/23/18 05:10: Urine Color Yellow, Urine Appearance Clear, Urine pH 7.0, Ur Specific [place] 1.020, Urine Protein Negative, Urine Glucose (UA) Negative, Urine Ketones Negative, Urine Blood Negative, Urine Nitrate Negative, Urine Bilirubin Negative, Urine Urobilinogen 0.2, Ur Leukocyte Esterase Negative, Urine WBC 3-5, Ur Squamous Epith Cells 3-5, Urine Bacteria 4+, Urine Mucus 1+ 07/23/18 05:30: WBC 10.1, RBC 3.65 L, Hgb 11.7 L, Hct 33.3 L, MCV 91.1, MCH 32.0 H, MCHC 35.2, RDW 13.4, Plt Count 241, MPV 7.3 L, Neut % (Auto) 66.0, Lymph % (Auto) 24.2, [place] % (Auto) 4.5, Eos % (Auto) 1.0, Baso % (Auto) 0.5, Neut # (Auto) 6.7, Lymph # (Auto) 2.4, [place] # (Auto) 0.5, Eos # (Auto) 0.1, Baso # (Auto) 0.1 07/23/18 05:30: Blood Type O Positive, Antibody Screen Negative 07/23/18 06:10: POC Glucose 86 I & O for Last 24 hours: Intake & Output 07/20/18 07/21/18 07/22/18 07/23/18 11:59 11:59 11:59 11:59 Weight 171 lb 8 oz
--- NOTE | 2018-07-23 12:16 | Progress Note ---
[facility] Anesthesia Checklist - Patient Identification Patient Identification: Arm Band - Structural Data Admitted From: Inpatient Planned Operative Procedure/s: labor epidural Consent for Planned Operative Procedure(s) Verified: Yes Verified Documents: History and Physical - NPO Status Verified Time NPO: 00:00 - Additional verifications Anesthesia Reactions: No - Airway Assessment C-Spine Mobility Assessed: Yes TMJ Mobility Assessed: Yes Dentition: Good Dentition - Neurological Assessment Level of Consciousness: Awake, Alert - Anesthesia Plan Anesthesia Risk discussed: Yes Anesthesia Plan: Verified ASA Class: II Anesthesia Type: Epidural [facility] History I have reviewed the patient's past medical history: Yes Other Medical History: Reports: Other Laterality Cases: Left: Other Other Surgeries: Yes: Other. No: Amputation: No Fractures: Yes (LEFT LEG) - *Social History Smoking Status: Current every day smoker Tobacco Type: cigarettes # Packs/Day (cigarettes): 1 Alcohol Intake: never Substance Use Type: denies use Occupational Status: employed Housing: house *Family Hx:: Diabetes, Hypertension [employer] history: Non-contributory Para: 1
--- NOTE | 2018-07-23 13:08 | Progress Note ---
Internal Medicine - PN: Subj *Date: 07/23/18 *Time: 13:07 Interval history: Cervix now completely effaced, 5 cm, as any vertex at -2 station. Exam Vital signs and Labs for Last 24 Hours: Temp Pulse Resp BP Pulse Ox 98.3 F 73 18 126/73 99 07/23/18 06:39 07/23/18 06:39 07/23/18 06:39 07/23/18 06:39 07/23/18 06:39 Laboratory Results - last 24 hr 07/23/18 05:10: Urine Color Yellow, Urine Appearance Clear, Urine pH 7.0, Ur Specific [place] 1.020, Urine Protein Negative, Urine Glucose (UA) Negative, Urine Ketones Negative, Urine Blood Negative, Urine Nitrate Negative, Urine Bilirubin Negative, Urine Urobilinogen 0.2, Ur Leukocyte Esterase Negative, Urine WBC 3-5, Ur Squamous Epith Cells 3-5, Urine Bacteria 4+, Urine Mucus 1+ 07/23/18 05:30: WBC 10.1, RBC 3.65 L, Hgb 11.7 L, Hct 33.3 L, MCV 91.1, MCH 32.0 H, MCHC 35.2, RDW 13.4, Plt Count 241, MPV 7.3 L, Neut % (Auto) 66.0, Lymph % (Auto) 24.2, [place] % (Auto) 4.5, Eos % (Auto) 1.0, Baso % (Auto) 0.5, Neut # (Auto) 6.7, Lymph # (Auto) 2.4, [place] # (Auto) 0.5, Eos # (Auto) 0.1, Baso # (Auto) 0.1 07/23/18 05:30: Blood Type O Positive, Antibody Screen Negative 07/23/18 06:10: POC Glucose 86 I & O for Last 24 hours: Intake & Output 07/21/18 07/22/18 07/23/18 07/24/18 11:59 11:59 11:59 11:59 Weight 171 lb 8 oz
--- NOTE | 2018-07-23 16:34 | Procedure Note ---
- Delivery Note Delivery Date:: 07/23/18 Delivery Time:: 16:11 Anesthesia Type: Epidural Was labor medically induced?: Yes Induction method: per pitocin protocol Gestational age (weeks): 39 delivered prior to 39 weeks?: No Justification for early elective delivery:: Gestational Diabetes Gender: Female at 1 minute: 8 at 5 minutes: 9 Suction Catheter Type: Bk AF:: clear LAC or MLE?: LAC Delivery Procedure:: This 28-year-old 3, now para 2, Ab0 white female was admitted at 39-4/7 weeks with irregular contractions. Her had been complicated by mild (diet controlled) gestational diabetes, and her Accu-Chek on admission was 86. The time of admission, her cervix was 1-2 cm dilated and the presenting vertex was posterior. She was augmented with intravenous Pitocin, and labored under a labor epidural, which worked well. At 3-4 cm of dilatation, an amniotomy revealed clear fluid, and an internal monitor was placed. Shortly thereafter, there were a couple of deep decelerations, and amnioinfusion was carried out, with good result. The patient then went steadily to completion at 1600, and delivered spontaneously, without an episiotomy, at 1611. There was no meconium. The baby's nasal and oropharynx were bulb suctioned, and the baby cried spontaneously on the perineum, as was delivered. A loose nuchal cord x1 was easily reduced. The cord was clamped and cut, 3 vessels were noted to be within the cord, and cord blood was obtained. The cord pH was 7.39. The baby was handed into the arms of the attending RN, who assigned Apgars of 8 at 1 minute and 9 to this 6 pound 7 ounce, 19 inch female infant, born at 1611. The placenta delivered spontaneously, intact, at 1614, making the total time in labor 10 hours 14 minutes. The uterus was inspected and was felt to be clean, and was involuting well, with IV Pitocin running. There was a small first- degree perineal laceration, which was closed with a running unlocked suture of 2-0 Vicryl. The rectovaginal septum was intact at the close of the procedure. The sponge and needle counts correct. The estimated blood loss was 350 cc. The patient tolerated the procedure well, and was recovered in excellent condition. Her blood type is O+. Her rubella titer is immune. She plans to bottlefeed. Placental Delivery Description: Spontaneous
[2018-07-24 06:45] LABS: Hematocrit 34.3 % (37.0-47.0); Hemoglobin 11.5 g/dL (12.2-16.2)
--- NOTE | 2018-07-24 09:45 | Progress Note ---
Internal Medicine - PN: Subj *Date: 07/24/18 *Time: 09:44 Interval history: This is day #1. The patient is afebrile. Vital signs stable. Abdomen soft. Uterine fundus involuting well. Lochia normal. Perineum healing well. Hemoglobin 11.5 g. Impression: stable. Exam Vital signs and Labs for Last 24 Hours: Temp Pulse Resp BP Pulse Ox 97.7 F 66 16 115/69 96 07/24/18 08:00 07/24/18 08:00 07/24/18 08:18 07/24/18 08:00 07/24/18 08:00 Laboratory Results - last 24 hr 07/23/18 16:19: Cord ABG pH 7.39 07/24/18 06:25: Hgb 11.5 L, Hct 34.3 L I & O for Last 24 hours: Intake & Output 07/21/18 07/22/18 07/23/18 07/24/18 11:59 11:59 11:59 11:59 Weight 171 lb 8 oz Microbiology Reports for the Last 24 Hours: Microbiology 07/23/18 05:10 Urine,Clean Catch Urine Culture - Preliminary NO GROWTH AFTER 24 HOURS
[2018-07-24 21:39] VITALS: BP 126/90
--- NOTE | 2018-07-25 08:11 | Progress Note ---
Internal Medicine - PN: Subj *Date: 07/25/18 *Time: 08:10 Interval history: This is day #2. The patient is afebrile. Vital signs stable. Abdomen soft. Lochia normal. Uterine fundus involuting well. Perineum healing well. She will be discharged today. Exam Vital signs and Labs for Last 24 Hours: Temp Pulse Resp BP Pulse Ox 98.3 F 65 18 126/90 99 07/24/18 19:38 07/24/18 19:38 07/24/18 19:38 07/24/18 19:38 07/24/18 19:38 I & O for Last 24 hours: Intake & Output 07/22/18 07/23/18 07/24/18 07/25/18 11:59 11:59 11:59 11:59 Weight 171 lb 8 oz Microbiology Reports for the Last 24 Hours: Microbiology 07/23/18 05:10 Urine,Clean Catch Urine Culture - Final NO GROWTH AFTER 48 HOURS
--- NOTE | 2018-07-25 08:15 | Discharge Summary ---
General - General Admission date:: 07/23/18 Discharge date: 07/25/18 (By mild (diet controlled) gestational diabetes, and her Accu-Chek on admission was 86. She was augmented with intravenous Pitocin, and labored under a labor epidural, which worked well. At one point she required an amnioinfusion because of some decelerations, but these cleared and her labor progressed uneventfully. She went steadily to completion, and delivered spontaneously, without an episiotomy, on 07/23/18 at 1611. The baby was an 8/9, 6 pounds 7 ounce, 19 inch female , who is bottlefeeding and has done well. The patient sustained a first-degree perineal laceration, which was closed in the usual fashion, and is healing well. , the patient is done well. She is eating and. Her abdomen is soft. Her lochia is normal. Her uterine fundus has involuted well. Her perineum is healing well. Her hemoglobin is 11.5 g, but she is clinically stable. She is discharged home on the second day on iron and vitamins, and on Tylenol and Motrin, as needed for pain. She is given appropriate instructions as to diet, exercise, and perineal care, and she is to return to the office in 3 weeks for follow-up. Her blood type is O+. Her rubella titer is immune.) Hospital Course Rhogam Administration: Not Indicated Objective Vital signs: Temp Pulse Resp BP Pulse Ox 98.3 F 65 18 126/90 99 07/24/18 19:38 07/24/18 19:38 07/24/18 19:38 07/24/18 19:38 07/24/18 19:38 Discharge Plan - Patient Discharge Instructions Additional Instructions: No heavy lifting, no strenuous activity, nothing in the vagina for 6 weeks. Patient Instructions: Depression, Hemorrhage, [facility] Post Discharge Instructions - Follow up Plan Follow up with: Nas Diamond MD [Staff Physician] - 08/13/18 3:30 pm Home Medications: Home Medications Medication Instructions Recorded Confirmed Type ferrous fumarate 325 mg (106 mg 325 mg PO DAILY tab 12/11/17 07/23/18 History iron) tablet 1 tab PO HS 12/11/17 07/23/18 History vitamin,calcium,ofpmldig-mnje-kzxmz acid tablet Prescriptions/Medication Reconciliation: No Action vitamin,calcium,awgwzzio-gypm-kiybx acid tablet 1 tab PO HS ferrous fumarate 325 mg (106 mg iron) tablet 325 mg PO DAILY tab
== END 2018-07-25 10:40 | disposition home or self-care (01) ==
LOC: OB 04:56
PROVIDERS: ADMIT Nurse Practitioner Obstetrics & Gynecology; ATTEND Obstetrics & Gynecology